=== PATIENT | male | born 1970 | race Caucasian/White ===

== ENCOUNTER 2019-06-13 21:34 | Emergency (ER) | payer OTHER, SELFPAY ==
--- NOTE | 2019-06-13 23:55 | RAD ---
EXAM: Chest Two Views 06/13/2019 11:52 PM HISTORY: Cough COMPARISON: None. FINDINGS: Heart: Normal in size and contour. Pulmonary vessels: Normal. Costophrenic angles: Clear. Lungs: No acute airspace consolidation. Pneumothorax: None. Osseous structures:Intact. Additional findings: None. IMPRESSION: No significant acute intrathoracic disease.
== END 2019-06-14 00:33 | disposition home or self-care (01) ==
LOC: ERS 21:34
DX: J06.9 Acute upper respiratory infection, unspecified (principal); F17.210 Nicotine dependence, cigarettes, uncomplicated; I10 Essential (primary) hypertension
CPT/HCPCS: 71046; 87804; J7620

== ENCOUNTER 2019-11-27 10:55 | Emergency (ER) | payer SELFPAY ==
[2019-11-27] MEDS ORDERED: Morphine 4 MG/ML VIAL ONE (11:37)
[2019-11-27] MEDS ORDERED: Ketorolac Tromethamine 30 MG/ML VIAL ONE (11:37)
[2019-11-27 13:03] LABS: Bacteria/HPF None Seen HPF (None Seen); Bilirubin Negative (Negative); Blood, Urine Trace (Negative); Clarity Clear (Clear); Glucose, Urine (Dipstick) Normal (Negative); Leukocyte Negative Leu/uL (Negative); Nitrite Negative (Negative); Protein, Urine (Dipstick) Negative (Neg-Trace); Squamous Epithelial 0-3 HPF (0-3); Urobilinogen Normal mg/dL (Less than 2); WBC/HPF 0-3 HPF (0-3)
--- NOTE | 2019-11-27 14:39 | CT ---
CT ABDOMEN AND PELVIS 11/27/19 COMPARISON: CT 2009. HISTORY: Left sided flank pain. TECHNIQUE: Axial CT imaging obtained at 5 mm intervals from the lung bases through the pubic symphysis without c ontrast. Coronal and sagittal reformatted imaging obtained. FINDINGS: The lack of contrast medial limits assessment of the viscera, bowel, vascular structures and for lymp hadenopathy. The visualized lung bases are unremarkable. No free intraperitoneal air or fluid is seen. The liver, gallbladder, spleen, pancreas, and adrenal glands are unremarkable. The right kidney is un remarkable with no evidence for obstructive uropathy or nephrolithiasis on the right. The left kidney is enlarged and there is left sided perinephric fat stranding. There is a stone withi n the lower pole of the left kidney measuring approximately 5 mm. There is dilation of the left ureter with left sided periureteral fat stranding. There is an obstruct ing stone within the left ureter. At the axial level of the pelvic inlet, best seen on axial image 75 and coronal image 89. This obstructing stone within the left ureter measures approximately 7 x 6 mm . There is wall prominence of the colon in the region of the distal sigmoid colon and rectum. The colon ic wall is also prominent from the mid transverse colon through the region of the mid descending colo n. There is scattered diverticular disease throughout the colon. The appendix appears grossly unremar kable. There is scattered atherosclerotic calcification of the abdominal aorta and its branches. Review of the osseous structures demonstrates lower lumbar spine facet hypertrophy. No worrisome lyti c or blastic bone lesion. IMPRESSION: 1. Obstructive uropathy on the left secondary to a 6-7 mm obstructing stone within the left uret er at the level of the pelvic inlet. 2. Intrarenal calculus on the left. 3. Wall prominence of the sigmoid colon and rectum. A degree of colitis cannot be excluded in th e proper clinical setting. Clinical correlation is required. POS: ROSA
== END 2019-11-27 14:26 | disposition short-term general hospital (02) ==
LOC: ERS 10:55
DX: N20.1 Calculus of ureter (principal); I10 Essential (primary) hypertension; J45.909 Unspecified asthma, uncomplicated; F17.210 Nicotine dependence, cigarettes, uncomplicated; Z79.51 Long term (current) use of inhaled steroids
CPT/HCPCS: 74176; 81003; 81015; 96374; 96375; J1885; J2270

== ENCOUNTER 2020-07-28 15:03 | Emergency (ER) | payer OTHER, SELFPAY ==
[2020-07-28] MEDS ORDERED: Lidocaine 1% (PF) 30 ML VIAL ONE (16:09)
[2020-07-28] MEDS ORDERED: Ibuprofen 200 MG TAB ONE (16:15)
[2020-07-28] MEDS ORDERED: Boostrix 0.5 ML (Tdap) VIAL ONE (16:16)
== END 2020-07-28 17:09 ==
LOC: ERS 15:03
DX: S01.511A Laceration without foreign body of lip, initial encounter (principal); I10 Essential (primary) hypertension; J45.909 Unspecified asthma, uncomplicated; F17.210 Nicotine dependence, cigarettes, uncomplicated; Z79.899 Other long term (current) drug therapy; W22.8XXA Striking against or struck by other objects, initial encounter
CPT/HCPCS: 40650; 90471; 90715; J2001